=== PATIENT | female | born 1990 | race Caucasian/White ===

== ENCOUNTER 2020-07-15 11:14 | Outpatient (REF) | payer OTHER, SELFPAY | END 2020-07-15 11:15 | disposition home or self-care (01) | LOC: HO.LAB 11:14 | PROVIDERS: Visit Provider Internal Medicine | DX: Z20.822 Contact with and (suspected) exposure to COVID-19 (principal) | CPT/HCPCS: 36415; C9803; U0003 ==

== ENCOUNTER 2021-02-09 12:09 | Emergency (ER) | payer OTHER, SELFPAY ==
[2021-02-09 13:30] VITALS: BP 113/59; PULSE 64; RESP 16; TEMP 36.6; O2SAT 98; BMI 30.1
--- NOTE | 2021-02-09 15:17 | ED_ITS ---
HPI - Skin/Abscess/Foreign Bdy General Chief complaint: Skin/Abscess/Foreign Body Stated complaint: arm infection Time Seen by Provider: 02/09/21 15:17 Source: patient Mode of arrival: ambulatory Limitations: no limitations History of Present Illness HPI narrative: Patient presents to ED for right arm skin discomfort. Patient states on right forearm there was a bubble and a pop and now area is red and tender to palpation. Patient denies any IV drug use or recent trauma to right upper extremity. Patient states no chest pain or shortness of breath. MD complaint: rash Related Data Previous Rx's Medication Instructions Recorded cephalexin 500 mg capsule 500 mg PO QID #28 cap 02/09/21 doxycycline hyclate 100 mg capsule 100 mg PO BID #14 cap 02/09/21 naproxen 500 mg tablet 500 mg PO BID PRN #20 tab 02/09/21 Allergies Allergy/AdvReac Type Severity Reaction Status Date / Time No Known Allergies* Allergy Uncoded 03/27/20 22:32 Review of Systems Review of Systems: Yes all other systems are reviewed and are negative Constitutional: Constitutional: Reports as per HPI and Reports no additional constitutional complaints Eyes: Eyes: Reports as per HPI and Reports no additional eye complaints ENT: Reports system reviewed and no additional complaints, except as docum ented and Reports as per HPI Cardiovascular: Cardiovascular: Reports as per HPI and Reports no additional cardiovascular complaints Respiratory: Respiratory: Reports as per HPI and Reports no additional respiratory complaints Gastrointestinal: Gastrointestinal: Reports as per HPI and Reports no additional gastrointestinal complaints Genitourinary: Genitourinary: Reports no additional female genitourinary complaints and Reports as per HPI Musculoskeletal: Musculoskeletal: Reports no additional musculoskeletal complaints and Reports as per HPI Comments: Right forearm area of redness Neurologic: Reports system reviewed and no additional complaints, except as documented and Reports as per HPI Psychiatric: Psychiatric: Reports no additional psychiatric complaints and Reports as per HPI [facility] Past Medical History Medical History (Updated 02/09/21 @ 15:23 by BREONNA Bone) No known health problems Social History Social History Advance Directives: Yes Advance Directives Information Provided: Yes Advance Directives on File: No Patient : No Physical Exam Vital Signs: Vital Signs: Last Vital Signs Temp 97.8 F 02/09/21 13:30 Pulse 64 02/09/21 13:30 Resp 16 02/09/21 13:30 BP 113/59 L 02/09/21 13:30 Pulse Ox 98 02/09/21 13:30 Body Mass Index 30.1 Const: General: cooperative, healthy appearing, comfortable, no acute distress, well developed, alert, awake and Physically active Orientation/consciousness: patient oriented x3 HENMT: Head: Yes normal to inspection, Yes No palpable skull fracture present, Yes normocephalic and Yes atraumatic Eyes: General: appearance normal, both eyes and all related structures Neck: Neck: Yes normal visual inspection, Yes full ROM, Yes no lymphadenopathy, Yes no meningeal signs, Yes trachea midline, Yes supple and No tender Chest: Chest palpation & inspection: normal inspection of the chest and normal palpation of entire chest wall Resp: Effort & Inspection: normal respiratory effort and able to speak in complete sentences Auscultation: clear to auscultation bilaterally Cardio: Jugular venous distension: no JVD Heart sounds: S1 normal heart sound present and S2 normal heart sound present GI: Inspection: Yes normal to inspection and No abdominal wall ecchymosis Palpation (GI): Soft to palpation, not firm, nontender, no guarding and not rigid : General: No CVA tenderness and Yes no CVA tenderness Back/Spine/Pelvis: Back: no CVA tenderness, No CVA tenderness and No back tenderness Skin: General skin exam: no rashes or lesions noted and elasticity normal Neuro: General: patient oriented x3, gait normal, no meningeal signs and CN's II-XI intact bilaterally Cranial nerves: Yes CN's II-XII intact bilaterally Extrem: General: Yes normal to inspection and Yes full ROM Elbow/forearm/wrist images: 1. Small area of redness. Negative for any pus discharge or foul odor. Negative for any fluctuance. Patient has complete rang e of motion of right upper extremity. Motor/nose/vascular exam intact. negative for swelling of extremity. Psych: Appearance: grossly normal, well kempt and not disheveled Course Course Course Narrative: Mild cellulitis. No imaging indicated. Not suspecting DVT. Patient denies any IV drug use per Reevaluation(s) Reevaluation #1: Patient will be discharged with antibiotics. Time: 15:22 MDM - Skin/Abscess/Foreign Bdy MDM Narrative Medical decision making narrative: Cellulitis Discharge Plan Discharge Clinical Impression: Cellulitis Patient Disposition: Home, Self-Care Instructions: Cellulitis (ED), Warm Compress or Soak (ED) Additional Instructions: Return to the ED for any worsening redness, development of red streaks, swelling, fever, chills, chest pain, shortness of breath, decreased mobility, or any other concerning symptoms. Please follow-up with PCP Prescriptions: New cephalexin 500 mg capsule 500 mg PO QID Qty: 28 RF: 0 doxycycline hyclate 100 mg capsule 100 mg PO BID Qty: 14 RF: 0 naproxen 500 mg tablet 500 mg PO BID PRN (Reason: pain) Qty: 20 RF: 0 Interventions: ED Discharge Assessment Last Done: 02/09/21 15:40 Discharge Date/Time: 02/09/21 15:40 Print Language: Welsh
== END 2021-02-09 15:40 | disposition home or self-care (01) ==
PROVIDERS: Emergency Provider Emergency Medicine Emergency Medical Services
DX: L03.113 Cellulitis of right upper limb (principal)
CPT/HCPCS: 99283

== ENCOUNTER 2021-09-29 16:17 | Emergency (ER) | payer OTHER, SELFPAY ==
[2021-09-29 16:53] VITALS: BP 105/55; PULSE 90; RESP 17; TEMP 38.3; O2SAT 98; BMI 26.0
[2021-09-29] MEDS: Acetaminophen 325 MG TABLET 650 MG PO (16:58)
--- NOTE | 2021-09-29 17:39 | ED.URI ---
HPI - URI/Sore Throat General Chief Complaint: Fever Stated Complaint: cough,fever,body aches Time Seen by Provider: 09/29/21 17:37 Source: patient Mode of arrival: ambulatory Limitations: no limitations History of Present Illness HPI Narrative: 31-year-old female presents with upper respiratory symptoms that started last night. Patient had chills, had a subjective fever, dry cough, sore throat, runny nose, body aches. No chest pain, no shortness of breath, no vomiting, diarrhea, nausea, no ear pain. Patient is not vaccinated for COVID. No sick contacts. Patient is healthy at baseline. No antipyretics prior to arrival MD elicited complaint: fever, cough, sore throat and rhinorrhea Onset (ago): day(s) (1) Consistency: constant Severity: moderate Able to tolerate fluids by mouth: Yes Exacerbating factors: nothing Relieving factors: nothing Associated symptoms: fever, chills, myalgias, rhinorrhea, sore throat and cough Treatments prior to arrival: none Related Data Previous Rx's Medication Instructions Recorded cephalexin 500 mg capsule 500 mg PO QID #28 cap 02/09/21 doxycycline hyclate 100 mg capsule 100 mg PO BID #14 cap 02/09/21 naproxen 500 mg tablet 500 mg PO BID PRN #20 tab 02/09/21 oseltamivir 75 mg capsule 75 mg PO BID 5 Days #10 cap 09/29/21 Allergies Allergy/AdvReac Type Severity Reaction Status Date / Time No Known Allergies* Allergy Uncoded 03/27/20 22:32 Review of Systems Constitutional: Constitutional: Reports body ache(s), Denies chills, Reports fatigue, Reports fever(s), Denies headache(s), Reports malaise and Denies weakness Eyes: Eyes: Denies blurry vision, Denies change in vision and Denies diplopia ENT: Denies vertigo, Denies dizziness, Denies otalgia, Denies headache(s), Denies mouth pain, Reports nasal discharge, Reports post nasal drip, Denies sinus pain, Denies sinus pressure, Reports sore throat and Denies throat swelling Cardiovascular: Cardiovascular: Denies chest pain, Denies syncope, Denies leg edema, Denies lightheadedness, Denies Loss of Consciousness, Denies palpitations and Denies dyspnea Respiratory: Respiratory: Denies chest congestion, Denies cough and Denies dyspnea Gastrointestinal: Gastrointestinal: Denies abdominal pain, Denies hematochezia, Denies constipation, Denies diarrhea and Denies vomiting Genitourinary: Genitourinary: Reports no additional female genitourinary complaints Musculoskeletal: Musculoskeletal: Reports myalgias Neurologic: Denies confusion, Denies vertigo, Denies dizziness, Denies syncope, Denies headache(s) and Denies weakness Psychiatric: Psychiatric: Denies anxiety, Denies confusion and Denies depression Endocrine: Endocrine: Reports fatigue and Denies palpitations Allergic/Immunologic: Allergic/Immunologic: Denies throat swelling PMFSH Past Medical History Medical History (Updated 09/29/21 @ 18:56 by BREONNA Butler) No known health problems Social History Social History Advance Directives: No Advance Directives Information Provided: No Physical Exam Vital Signs: Vital Signs: Last Vital Signs Temp 101 F H 09/29/21 16:53 Pulse 89 09/29/21 18:33 Resp 18 09/29/21 18:33 BP 105/55 L 09/29/21 16:53 Pulse Ox 98 09/29/21 16:53 BMI result Body Mass Index 26.0 Const: General: alert, awake, ill appearing acutely and tired appearing; No confusion Nutritional Appearance: well nourished Orientation/consciousness: patient oriented x3 and No confusion Limitations: no limitations HEENT: Head: Yes normal to inspection, Yes normocephalic and Yes atraumatic Ears: hearing grossly normal bilaterally, external ears normal, TM's normal bilaterally and EAC's normal General nose exam: Normal external nose present Face and sinus: Yes normal facial exam and Yes sinuses nontender Mouth: Normal oral and palatal mucosa present Throat: Yes tonsils normal, Yes uvula midline, No abnormal tonsil, Yes posterior oropharynx abnormal (Mildly erythematous) and Yes postnasal drainage Eyes: Conjunctivae: conjunctivae normal Pupils: Equal, round and reactive pupils present EOM: EOMs intact bilaterally Neck: Neck: Yes normal visual inspection, Yes full ROM, No no lymphadenopathy, Yes trachea midline and Yes supple Resp: Effort & Inspection: normal respiratory effort and able to speak in complete sentences Auscultation: no crackles, no rales, no rhonchi, no wheezes and diminished lung sounds (Mildly) Cardio: Rate: regular rate Rhythm: regular rhythm Heart sounds: S1 normal heart sound present and S2 normal heart sound present GI: Inspection: Yes normal to inspection Palpation (GI): Soft to palpation, nontender, no guarding and not rigid Percussion: Yes normal to percussion Auscultation: normal bowel sounds Skin: General skin exam: no rashes or lesions noted Neuro: General: patient oriented x3 and No confusion Cranial nerves: Yes Equal, round and reactive pupils present Extrem: General: Yes normal to inspection and Yes full ROM Psych: Appearance: grossly normal Affect: normal affect Attitude: cooperative Thought process: Normal thought process present Course Course Course Narrative: 31-year-old female who is unvaccinated for COVID presents for upper respiratory symptoms it started last night. On exam, patient is febrile at 01:01 F, lungs mildly diminished on auscultation, TMs erythematous but not bulging, oropharynx shows postnasal drip and posterior erythema, no tonsillar swelling or exudate. Will get COVID, strep, flu, give albuterol inhaler, Tylenol, ibuprofen. Reevaluation(s) Reevaluation #1: Patient feels better after albuterol treatment, and is moving more air Strep and Covid negative, Flu A positive. Discussed Tamiflu with patient, it's side effects and limited efficacy. She wanted to try it anyway. Counseled flu will need to run it's course, and that she should treat ers symptoms with increased fluids, alternating tylenol and ibuprofen, and rest. Gave return precautions. MDM - URI/Sore Throat Lab Data Labs: Lab Results 09/29/21 09/29/21 09/29/21 Range/Units 18:00 18:00 18:00 COVID-19 ([facility]) Negative (Negative) COVID-19 Clin Com See Note Influenza Type A ([facility]) Positive A (Negative) Influenza Type B ([facility]) Negative (Negative) Influenza A & B Note See Note S. pyogenes GrpA [facility] Negative (Negative) Discharge Plan Discharge Clinical Impression: Influenza Patient Disposition: Home, Self-Care Instructions: Influenza (ED) Prescriptions: New oseltamivir 75 mg capsule 75 mg PO BID 5 Days Qty: 10 0RF No Action cephalexin 500 mg capsule 500 mg PO QID Qty: 28 0RF doxycycline hyclate 100 mg capsule 100 mg PO BID Qty: 14 0RF naproxen 500 mg tablet 500 mg PO BID PRN (Reason: pain) Qty: 20 0RF
[2021-09-29] MEDS: Ibuprofen 800 MG TABLET PO (18:26)
[2021-09-29 18:30] LABS: COVID-19 Test Negative (Negative)
[2021-09-29 18:33] VITALS: PULSE 89; RESP 18; O2SAT 96
[2021-09-29] MEDS: Albuterol Sulfate 90 MCG 8 GM INHALER 2 PUFF INHALE (18:33)
[2021-09-29 18:36] LABS: IDNOW Serial# 08D9AD1C; Influenza A Positive (Negative); Influenza B2 Negative (Negative)
[2021-09-29 18:45] LABS: IDNOW Serial# 08D9AD1C; Strep A Nucleic Acid Negative (Negative)
[2021-09-29 18:58] VITALS: BP 102/53; PULSE 96; RESP 18; TEMP 37.1; O2SAT 97
== END 2021-09-29 19:35 | disposition home or self-care (01) ==
PROVIDERS: Physician Assistant; Emergency Provider Emergency Medicine
DX: J11.1 Influenza due to unidentified influenza virus with other respiratory manifestations (principal); Z20.822 Contact with and (suspected) exposure to COVID-19; R50.9 Fever, unspecified
CPT/HCPCS: 87502; 87635; 87651; 94640; 99284

== ENCOUNTER 2022-11-10 08:24 | Emergency (ER) | payer OTHER, SELFPAY ==
--- NOTE | ~2022-11-10 | XR_ITS ---
EXAMINATION: XR ELBOW, LEFT CLINICAL INFORMATION: Left elbow injury. COMPARISON: None available. TECHNIQUE: AP, lateral, and oblique views of the left elbow. FINDINGS: The bones and soft tissues are normal. No fracture or joint effusion. Alignment is anatomic. Joint spaces are maintained. XR/XR elbow LT 2V IMPRESSION: Normal left elbow.
[2022-11-10 08:36] VITALS: BP 112/66; PULSE 73; RESP 16; TEMP 36.4; O2SAT 99; BMI 33.1
--- NOTE | 2022-11-10 09:11 | ED_ITS ---
HPI - Extremity Problem General Chief complaint: Extremity Injury, Upper Stated complaint: L elbow pain Time Seen by Provider: 11/10/22 09:11 Source: patient Mode of arrival: ambulatory Limitations: no limitations History of Present Illness HPI Narrative: Patient is a 32-year-old [id number] female with no past medical history presenting with left elbow pain after slipping at work and falling into the wall with her elbow flexed and arm hyperextended and abducted from her shoulder on Monday night. She states initially the pain was minimal, but when she woke yesterday the pain continued to increase throughout the day. She has taken ibuprofen yesterday and today with little relief of pain. She reports that the pain radiates to her fingers with movement from her elbow. She denies any numbness or tingling to her forearm, wrist, or hand. She has not applied any ice or heat. Related Data Previous Rx's Medication Instructions Recorded cephalexin 500 mg capsule 500 mg PO QID #28 caps 02/09/21 doxycycline hyclate 100 mg capsule 100 mg PO BID #14 caps 02/09/21 naproxen 500 mg tablet 500 mg PO BID PRN pain #20 tabs 02/09/21 oseltamivir 75 mg capsule 75 mg PO BID 5 days #10 caps 09/29/21 Allergies Allergy/AdvReac Type Severity Reaction Status Date / Time No Known Allergies* Allergy Uncoded 03/27/20 22:32 Review of Systems Review of Systems: As per HPI Yes all other systems are reviewed and are negative PMFSH Past Medical History Medical History (Updated 11/10/22 @ 09:59 by Skylar Cody NP) No known health problems Social History Social History Advance Directives: No Physical Exam Vital Signs: Vital Signs: Last Vital Signs Temp 97.6 F 11/10/22 08:36 Pulse 60 11/10/22 09:17 Resp 17 11/10/22 09:17 BP 98/48 L 11/10/22 09:17 Pulse Ox 98 11/10/22 09:17 O2 Del Method Room Air 11/10/22 09:17 BMI result Body Mass Index 33.1 Const: General: cooperative, healthy appearing and no acute distress Orientation/consciousness: oriented to person, oriented to place, oriented to time and patient oriented x3 Limitations: no limitations HEENT: Head: Yes normocephalic and Yes atraumatic Ears: external ears normal General nose exam: Normal external nose present Face and sinus: Yes face symmetric Mouth: oropharynx normal and moist mucous membranes Throat: Yes uvula midline Eyes: Pupils: Equal, round and reactive pupils present Neck: Neck: Yes normal visual inspection and Yes supple Resp: Effort & Inspection: normal respiratory effort and able to speak in complete sentences Auscultation: clear to auscultation bilaterally Cardio: Rate: regular rate Rhythm: regular rhythm Heart sounds: S1 normal heart sound present and S2 normal heart sound present GI: Palpation (GI): Soft to palpation and nontender Auscultation: normoactive bowel sounds : General: Yes no CVA tenderness Back/Spine/Pelvis: Back: no CVA tenderness Skin: General skin exam: elasticity normal and turgor normal Neuro: General: oriented to person, oriented to place, oriented to time, patient oriented x3, moves all extremities, no focal motor deficits and CN's II- XI intact bilaterally Cranial nerves: Yes Equal, round and reactive pupils present Cognition (Neuro): normal cognition Extrem: General: Yes normal to inspection, Yes no pedal edema and Yes no calf tenderness Left upper extremity: normal to inspection, full ROM, normal capillary refill, shoulder/upper arm Details: normal ROM and elbow/forearm Details: normal to inspection, tenderness Location: of the lateral epicondyle Details: with resisted supination and with resisted pronation; not of the olecranon, not of the mid-shade forarm and not of the medial epicondyle, normal ROM and distal pulses intact; no swelling, no unusual warmth, no ecchymosis, no crepitus and no deformity; no edema and joint enlargement noted Psych: Mental Status: mental status grossly normal Affect: normal affect Thought process: Normal thought process present Medical Decision Making Medical Decision Making MDM Narrative: Patient is a 32-year-old [id number] female with no past medical history presenting with left elbow pain after slipping at work and falling into the wall with her elbow flexed and arm hyperextended and abducted from her shoulder on Monday night. On exam she is nontoxic appearing, VS WNL, afebrile, full ROM to left elbow, no crepitus or deformity, no ecchymosis, no focal neurological deficits. Concern for fracture, effusion, bursitis, tendinopathy given reported mechanism. Low suspicion for osetomyelitis, dislocation, ligamentous injury, distal biceps tendon rupture. X-ray negative for acute fracture. Will discharge patient home, advised to alternate Tylenol and ibuprofen, ice several times daily, follow up with ortho if not improving in 1-2 weeks. Return precautions discussed at bedside. Differential Diagnosis Differential Diagnoses: The differential diagnosis associated with the presentation includes As above Independent Interpretation I performed an independent interpretation of an: Plain X-Ray Interpretation: I independently reviewed the x-ray and agree with the radiologist's interpretation. Radiology Impression Discussion of test interpretation with radiology: I have reviewed the radiologist's reading. Radiologist Impression: FINDINGS: The bones and soft tissues are normal. No fracture or joint effusion. Alignment is anatomic. Joint spaces are maintained.? XR/XR elbow LT 2V IMPRESSION: Normal left elbow. External Record Review External record reviewed: Inpatient record, Office record and Outpatient record Discharge Plan Discharge Clinical Impression: Contusion of elbow, left Patient Disposition: Home, Self-Care Instructions: R.I.C.E. Treatment (ED) Additional Instructions: you have been evaluated in the emergency department today for left elbow pain. Your evaluation did not find evidence of medical conditions requiring emergent intervention at this time. Your x-ray did not show evidence of a fracture. We recommend taking 600 mg ibuprofen every 6 hours or Tylenol 650 mg every 6 hours as needed for pain. If needed, you can alternate these medications so that you take 1 medication every 3 hours. For instance, at noon take ibuprofen, then at 3:00 p.m. take Tylenol, then at 6:00 p.m. take ibuprofen. You should apply ice for 10-15 minutes at a time several times daily, using caution not to apply ice directly skin. If symptoms do not improve in the next 1-2 weeks you can follow up with orthopedics. return to the emergency department if you experience worsening pain, numbness, tingling, change of color in your fingers, or any other concerning symptoms. Prescriptions: No Action cephalexin 500 mg capsule 500 mg PO QID Qty: 28 0RF doxycycline hyclate 100 mg capsule 100 mg PO BID Qty: 14 0RF naproxen 500 mg tablet 500 mg PO BID PRN (Reason: pain) Qty: 20 0RF oseltamivir 75 mg capsule 75 mg PO BID 5 Days Qty: 10 0RF Referrals: [facility] [Provider Group] Stand Alone Forms: Work/School Release
[2022-11-10 09:17] VITALS: BP 98/48; PULSE 60; RESP 17; O2SAT 98
== END 2022-11-10 10:27 | disposition home or self-care (01) ==
PROVIDERS: Emergency Provider Emergency Medicine
DX: S50.02XA Contusion of left elbow, initial encounter (principal); M25.522 Pain in left elbow; X58.XXXA Exposure to other specified factors, initial encounter; Y93.9 Activity, unspecified; Y92.9 Unspecified place or not applicable; Y99.9 Unspecified external cause status
CPT/HCPCS: 73070; 99283

== ENCOUNTER 2022-11-11 17:19 | Emergency (ER) | payer OTHER, SELFPAY ==
--- NOTE | ~2022-11-11 | XR_ITS ---
EXAMINATION: XR WRIST, RIGHT XR HAND, RIGHT CLINICAL INFORMATION: Right hand and wrist pain. COMPARISON: None available. TECHNIQUE: PA, lateral, and oblique views of the right wrist and PA, lateral, and oblique views of the right hand FINDINGS: A metallic ring is noted projecting over the fourth proximal phalanx. No evidence of acute fracture or dislocation. No focal erosion. No dystrophic soft tissue calcifications. No significant abnormality of the bones, joints or soft tissues is demonstrated. XR/XR hand wrist RT IMPRESSION: Unremarkable right hand and wrist radiographs.
[2022-11-11 17:36] VITALS: BP 111/73; PULSE 87; RESP 18; TEMP 36.8; O2SAT 100; BMI 29.3
[2022-11-11 21:32] VITALS: BP 132/68; PULSE 65; RESP 14; O2SAT 99
--- NOTE | 2022-11-11 22:44 | ED_ITS ---
HPI - Extremity Problem General Chief complaint: Extremity Injury, Upper Stated complaint: R arm injury ? Time Seen by Provider: 11/11/22 21:32 Source: patient Mode of arrival: ambulatory Limitations: no limitations History of Present Illness HPI Narrative: Patient no significant arthritis or systemic disease was seen here 2 days ago for left elbow pain which got better be taking ibuprofen today noticed pain in t he right wrist. No other joints involved no palpitation or shortness of breath no fever or chills no family history of lupus or rheumatoid arthritis no skin color change Related Data Previous Rx's Medication Instructions Recorded cephalexin 500 mg capsule 500 mg PO QID #28 caps 02/09/21 doxycycline hyclate 100 mg capsule 100 mg PO BID #14 caps 02/09/21 naproxen 500 mg tablet 500 mg PO BID PRN pain #20 tabs 02/09/21 oseltamivir 75 mg capsule 75 mg PO BID 5 days #10 caps 09/29/21 ibuprofen 600 mg tablet 600 mg PO Q6H PRN fever or pain 11/12/22 #30 tabs prednisone 20 mg tablet 40 mg PO DAILY #10 tabs 11/12/22 Allergies Allergy/AdvReac Type Severity Reaction Status Date / Time No Known Allergies Allergy Verified 11/11/22 17:40 Review of Systems Review of Systems: Yes all other systems are reviewed and are negative PMFSH Past Medical History Medical History No known health problems Social History Social History Advance Directives: No Advance Directives Information Provided: No Physical Exam Vital Signs: Vital Signs: Last Vital Signs Temp 98.2 F 11/11/22 17:36 Pulse 74 11/12/22 00:23 Resp 14 11/12/22 00:23 BP 126/67 11/12/22 00:23 Pulse Ox 98 11/12/22 00:23 O2 Del Method Room Air 11/12/22 00:23 BMI result Body Mass Index 29.3 Extrem: Hand/finger images: 1. 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 For now patient will receive prednisone, ibuprofen advised to follow up as outpatient Lab Data [facility] Lab Attestation statement: I reviewed the patient's lab results. 11/11/22 23:12 11/11/22 23:12 Labs: Lab Results 11/11/22 11/11/22 11/11/22 Range/Units 23:12 23:12 23:12 WBC 12.0 H (4.8-10.8) X10*3/uL RBC 4.44 (4.20-5.50) X10*6/uL Hgb 11.7 L (12.0-16.0) g/dl Hct 35.4 L (37.0-47.0) % MCV 79.7 L (80.0-98.0) fL MCH 26.4 L (27.0-33.0) pg MCHC 33.1 (31.0-35.0) g/dl RDW 14.3 (11.0-16.0) % Plt Count 318 (160-400) X10*3/uL MPV 9.9 (9.4-12.3) fL Immature Gran % (Auto) 0.3 (0.0-0.4) % Neut % (Auto) 72.0 (45-73) % Lymph % (Auto) 20.2 (20-40) % Wright % (Auto) 6.9 (2-11) % Eos % (Auto) 0.3 (0-4) % Baso % (Auto) 0.3 (0-2) % Lymph # (Auto) 2.4 (1.2-4.9) X10*3/uL Wright # (Auto) 0.8 (0.1-1.2) X10*3/uL Eos # (Auto) 0.0 (0.0-0.4) X10*3/uL Baso # (Auto) 0.0 (0.0-0.2) X10*3/uL Abs Immat Gran (auto) 0.04 H (0.00-0.03) X10*3/uL Absolute Neuts (auto) 8.6 H (2.0-8.3) x10*3/uL Absolute Nucleated RBC 0.000 (0.0-0.012) X10*3/uL Nucleated RBC % (auto) 0.0 (0.0-0.2) /100WBC ESR 27 H (0-20) MM/HR Sodium 138 (135-145) mmol/L Potassium 4.3 (3.3-5.1) mmol/L Chloride 106 (96-108) mmol/L Carbon Dioxide 25 (22-29) mmol/L Anion Gap 11 L (12-20) BUN 11 (9-16) mg/dL Creatinine 0.74 (0.5-1.4) mg/dL Estim Creat Clear Calc 94.8 Estimated GFR > 60 Random Glucose 91 (60-115) mg/dL Uric Acid 4.1 (2.4-5.7) mg/dL Calcium 9.0 (8.4-10.2) mg/dL C-Reactive Protein 1.68 H (< or = 0.50) mg/dL Rheumatoid Factor < 13.0 (<15.0) IU/mL Discharge Plan Discharge Clinical Impression: Arthritis Patient Disposition: Home, Self-Care Instructions: Arthritis (ED) Additional Instructions: Cause of the joint pain is not very clear to follow-up with your PCP for further workup likely have inflammatory joint disease Take ibuprofen for pain along with prednisone as prescribed Wear the splint for support Prescriptions: New prednisone 20 mg tablet 40 mg PO DAILY Qty: 10 0RF ibuprofen 600 mg tablet 600 mg PO Q6H PRN (Reason: fever or pain) Qty: 30 0RF No Action cephalexin 500 mg capsule 500 mg PO QID Qty: 28 0RF doxycycline hyclate 100 mg capsule 100 mg PO BID Qty: 14 0RF naproxen 500 mg tablet 500 mg PO BID PRN (Reason: pain) Qty: 20 0RF oseltamivir 75 mg capsule 75 mg PO BID 5 Days Qty: 10 0RF Stand Alone Forms: Work/School Release Interventions: ED Discharge Assessment Last Done: 11/12/22 00:24 Discharge Date/Time: 11/12/22 00:24
[2022-11-11 23:18] LABS: Basophils Percent Auto 0.3 % (0-2); Eosinophils Percent Auto 0.3 % (0-4); Hematocrit 35.4 % (37.0-47.0); Hemoglobin 11.7 g/dl (12.0-16.0); Imm Gran Abs Auto 0.04 X10*3/uL (0.00-0.03); Imm Gran Pct Auto 0.3 % (0.0-0.4); Lymphocytes Absolute Auto 2.4 X10*3/uL (1.2-4.9); Lymphocytes Percent Auto 20.2 % (20-40); MANUAL DIFF FLAG NO; Mean Corpuscular HGB Conc 33.1 g/dl (31.0-35.0); Mean Corpuscular Hemoglobin 26.4 pg (27.0-33.0); Mean Corpuscular Volume 79.7 fL (80.0-98.0); Mean Platelet Volume 9.9 fL (9.4-12.3); Monocytes Absolute Auto 0.8 X10*3/uL (0.1-1.2); Monocytes Percent Auto 6.9 % (2-11); Neutrophils Absolute Auto 8.6 x10*3/uL (2.0-8.3); Platelet Count 318 X10*3/uL (160-400); Red Blood Count 4.44 X10*6/uL (4.20-5.50); Red Cell Distribution Width 14.3 % (11.0-16.0)
[2022-11-11 23:36] LABS: Anion Gap 11 (12-20); Blood Urea Nitrogen 11 mg/dL (9-16); C Reactive Protein 1.68 mg/dL (< or = 0.50); Carbon Dioxide 25 mmol/L (22-29); Chloride 106 mmol/L (96-108); Creatinine Clr Calc Pharmacy 94.8; Estimated Glomerular Filt Rate > 60; Glucose Random 91 mg/dL (60-115); Potassium 4.3 mmol/L (3.3-5.1); Sodium 138 mmol/L (135-145); Uric Acid 4.1 mg/dL (2.4-5.7)
[2022-11-11 23:50] LABS: Erythrocyte Sedimentation Rate 27 MM/HR (0-20)
[2022-11-12] MEDS: predniSONE 20 MG TABLET 40 MG PO (00:05)
[2022-11-12 00:23] VITALS: BP 126/67; PULSE 74; RESP 14; O2SAT 98
[2022-11-12 00:53] LABS: Rheumatoid Factor < 13.0 IU/mL (<15.0)
[2022-11-16 14:48] LABS: Anti Nuclear Antibody Screen NEGATIVE (NEGATIVE)
== END 2022-11-12 00:24 | disposition home or self-care (01) ==
PROVIDERS: Emergency Provider Internal Medicine; PCP Internal Medicine
DX: M19.031 Primary osteoarthritis, right wrist (principal); M25.531 Pain in right wrist
CPT/HCPCS: 29125; 36415; 73110; 73130; 80048; 84550; 85025; 85652; 86038; 86140; 86431; 99283; 99284